=== PATIENT | female | born 1950 | race Caucasian/White ===

== ENCOUNTER 2022-08-14 06:11 | Emergency (ER) | payer OTHER ==
[~2022-08-14] VITALS: Ht 152.4 cm; Wt 72.6 kg
[2022-08-14] MEDS ORDERED: LOSARTAN POTASS50 MG PO (06:33)
[2022-08-14] MEDS ORDERED: ST. JOSEPH ASPI81 M2 PO (06:33)
[2022-08-14] MEDS ORDERED: ATORVASTATIN CA40 MG PO (06:33)
== END 2022-08-14 13:20 | disposition home or self-care (01) ==
LOC: ER 06:11
DX: I10 Essential (primary) hypertension (principal); Z91.013 Allergy to seafood; Z88.2 Allergy status to sulfonamides